=== PATIENT | male | born 1955 | race Caucasian/White ===

== ENCOUNTER → 2017-02-20 | Outpatient (CLI) | payer BC ==
--- NOTE | 2017-02-20 17:06 | KCIC ---
EXAM: Left shoulder, 3 views. HISTORY: Pain. COMPARISON: None. FINDINGS: Internal and external rotation and transscapular views of the left shoulder obtained. There is no fracture, dislocation or subluxation. IMPRESSION: No acute osseous finding. Electronically signed by: Melody Stafford MD (02/20/2017 5:03 PM)
== END | disposition home or self-care (01) ==
LOC: KCIC 15:56
PROVIDERS: ATTEND Family Medicine
DX: M25.512 Pain in left shoulder (principal)
CPT/HCPCS: 73030

== ENCOUNTER → 2017-04-04 | Outpatient (CLI) | payer BC ==
--- NOTE | 2017-04-04 11:13 | KCIC ---
Examination: MRI of the left shoulder without contrast HISTORY: History of pain in the left shoulder, painful range of motion COMPARISON: None available TECHNIQUE: Multiplanar, multisequence MR imaging of the left shoulder performed without contrast. FINDINGS: The long head of the biceps tendon within the bicipital groove. The attachment of the long head of the the biceps tendon to superior labrum grossly appears intact. Small amount of fluid identified within the biceps tendon sheath of the long head of the biceps tendon within the bicipital groove. The attachment of the subscapularis tendon grossly appears intact. There is mild tendinosis of the subscapular tendon, moderate tendinosis of the supraspinatus, infraspinatus tendon. There is minimal superficial bursal sided fraying of the supraspinatus tendon. No evidence of full-thickness rotator cuff tear. The teres minor tendon grossly appears intact. The muscle bulk grossly appears unremarkable. There is obliteration of fat in the rotator interval. Moderate degenerative changes in the acromioclavicular joint. The inferior aspect of the acromion abuts the superior aspect of the supraspinatus tendon. The acromion is type II. Small shoulder joint effusion identified. There is mild increased signal identified throughout the liver likely secondary to degeneration. Small cystic changes identified in the posterolateral humerus head. IMPRESSION: 1. Lateral downsloping of the acromion with the inferior aspect of the acromion abutting the superior aspect of the supraspinatus tendon. There is minimal bursal sided fraying of the supraspinatus tendon. Correlate for impingement. 2. Tendinosis of the supraspinatus and infraspinatus tendon without evidence of full-thickness rotator cuff tear. 3. Moderate acromioclavicular joint and glenohumeral joint osteoarthrosis. 4. Degenerative changes of the labrum. 5. Small amount of fluid identified in the long head of the biceps surrounding the long head of the biceps tendon probably related to rotator cuff tendinosis. 6. Obliteration of fat in the interval. Correlate for adhesive capsulitis. Electronically signed by: Alexis Ansari MD (04/04/2017 11:10 AM) [id number]
== END | disposition home or self-care (01) ==
LOC: KCIC MRI 09:07
PROVIDERS: ATTEND Family Medicine
DX: M19.012 Primary osteoarthritis, left shoulder (principal); M75.02 Adhesive capsulitis of left shoulder
CPT/HCPCS: 73221